=== PATIENT | female | born 2005 | race Caucasian/White ===

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

== ENCOUNTER 2023-02-12 21:34 | Outpatient (CLI) | payer MEDICAID ==
[~2023-02-12] VITALS: Ht 160 cm; Wt 61.4 kg
[2023-02-12 21:58] VITALS: BP 98/65
[2023-02-12 22:13] LABS: CLARITY,URINE CLOUDY; COLOR,URINE YELLOW; GLUCOSE, URINE (UA) TRACE (NEGATIVE); KETONES,URINE NEGATIVE (NEGATIVE); NITRITE,URINE NEGATIVE (NEGATIVE); PROTEIN,URINE 2+ (NEGATIVE)
[2023-02-12 22:14] LABS: BACTERIA,URINE LARGE /HPF; BILIRUBIN,URINE 1+ (NEGATIVE); LEUKOCYTE ESTERASE ,URINE 3+ (NEGATIVE); RBC,URINE 0-2 /HPF; SQUAMOUS EPITHELIAL CELL,UR >50 /HPF; WBC,URINE 25-50 /HPF
--- NOTE | 2023-02-13 07:55 | Physician Query-Final Dx ---
CAIO02/13/23 0755: Clinic Account Progress/Dx Physician Query: Please give diagnosis Please include # weeks gestation Date of Service Feb 12, 2023 at 21:34 ADOLFO BUCHANAN MD 02/13/23 0846: Clinic Account Progress/Dx DIAGNOSIS: Diagnosis Cramping in third trimester Cervix closed 36 weeks gestation ,MayFeb 13, 2023 07:55 ADOLFO BUCAHNAN MD Feb 13, 2023 08:46
== END 2023-02-12 23:15 | disposition home or self-care (01) ==
LOC: LDRP 21:34 → WSo 21:34
PROVIDERS: ATTEND Family Medicine
DX: O62.9 Abnormality of forces of labor, unspecified (principal); Z3A.36 36 weeks gestation of pregnancy
CPT/HCPCS: 81000; 87088; G0463; 87077; 99213

== ENCOUNTER 2023-02-23 08:21 | Inpatient (IN) | payer MEDICAID ==
[~2023-02-23] VITALS: Ht 160 cm; Wt 60.2 kg
[2023-02-23] VITALS (41 sets, daily range): BP systolic 94–139; BP diastolic 52–87
[2023-02-23] MEDS ORDERED: D5 LR 1,000 ML IV SOLN 1,000 ML IV SCH (09:45)
[2023-02-23] MEDS ORDERED: LACTATED RINGERS 1,000 ML 500 ML IV PRN (09:45)
[2023-02-23] MEDS ORDERED: LIDOCAINE 2% w/EPI 1:200,000 20 ML VIAL INJ PRN (09:45)
[2023-02-23] MEDS ORDERED: MINERAL OIL 30 ML UDC TOP PRN (09:45)
[2023-02-23 10:02] LABS: BILIRUBIN,URINE NEGATIVE (NEGATIVE); CLARITY,URINE CLEAR; COLOR,URINE YELLOW; GLUCOSE, URINE (UA) NEGATIVE (NEGATIVE); KETONES,URINE NEGATIVE (NEGATIVE); LEUKOCYTE ESTERASE ,URINE TRACE (NEGATIVE); NITRITE,URINE NEGATIVE (NEGATIVE); PH,URINE 7.5 (5-9); PROTEIN,URINE NEGATIVE (NEGATIVE)
[2023-02-23 10:03] LABS: BACTERIA,URINE TRACE /HPF; WBC,URINE 0-2 /HPF
[2023-02-23 10:24] LABS: BASOPHILS # (AUTO) 0.1 10^3/uL (0.0-0.1); BASOPHILS % (AUTO) 0 % (0-10); EOSINOPHILS # (AUTO) 0.3 10^3/uL (0.0-0.3); EOSINOPHILS % (AUTO) 2 % (0-10); HEMATOCRIT 34 % (35-52); HEMOGLOBIN 10.5 g/dL (11.5-16.0); LYMPHOCYTES # (AUTO) 2.1 10^3/uL (1.0-4.0); LYMPHOCYTES % (AUTO) 16 % (12-44); MEAN CORPUSCULAR HEMOGLOBIN 24 pg (25-34); MEAN CORPUSCULAR HGB CONC 31 g/dL (32-36); MEAN CORPUSCULAR VOLUME 76 fL (80-99); MEAN PLATELET VOLUME 11.9 fL (9.0-12.2); MONOCYTES # (AUTO) 1.6 10^3/uL (0.0-1.0); MONOCYTES % (AUTO) 12 % (0-12); NEUTROPHILS # (AUTO) 9.3 10^3/uL (1.8-7.8); NEUTROPHILS % (AUTO) 69 % (42-75); PLATELET COUNT 259 10^3/uL (130-400); WHITE BLOOD COUNT 13.5 10^3/uL (4.3-11.0)
--- NOTE | 2023-02-23 10:27 | History & Physical-OB ---
LUIS ANTONIO CAMARILLO MD,RESIDENT 02/23/23 1027: OB - Chief Complaint & HPI Date/Time Date of Admission: Date of Admission: Feb 23, 2023 at 09:31 Time Seen by a Provider: 10:00 Chief Complaint/History OB-Reason for Admission/Chief: Rupture of Membranes Hx : 2 Hx Para: 1 Expected Date of Delivery: Mar 12, 2023 Gestational Age in Weeks: 37 Gestational Age in Days: 4 Other Patient is a 17-year-old at 37 and 4. She reports rupture of membranes around 9:30 AM this morning with clear fluid. She denies feeling any contractions or vaginal bleeding and feels baby move. She denies any chest pain shortness of breath, nausea, or vomiting. She denies any complications with her previous for this current one. She delivered her daughter roughly 15 months ago. Allergies and Home Medications Allergies Coded Allergies: No Known Drug Allergies (Unverified , 11/11/21) Patient Home Medication List Home Medication List Reviewed: Yes Acetaminophen (Tylenol) 325 Mg Capsule, 325 MG PO PRN, (Reported) Entered as Reported by: YAHIR MERRITT on 11/11/211946 Last Action: Last Taken Edited Docusate Sodium (Docusate Sodium) 100 Mg Capsule, 100 MG PO BID Prescribed by: MARYAM NEWELL on 02/24/23 102 Ibuprofen (Ibu) 600 Mg Tablet, 600 MG PO Q6HR Prescribed by: MARYAM NEWELL on 02/24/23 1026 Vit/Iron Fumarate/FA ( Vitamins Tablet) 28 Mg Iron-800 Mcg Tablet, 1 EACH PO DAILY, (Reported) Entered as Reported by: YAHIR MERRITT on 11/11/211945 Last Action: Last Taken Edited OB - History Hx of Present Care: Yes Obstetrical History Hx : 2 Hx Para: 1 Hx Total # of Abortions (Spona: 0 Patient Past Medical History Denies Social History/Family History Alcohol Use: Denies Use Recreational Drug Use: No 2nd Hand Smoke Exposure: No Immunizations Influenza Vaccine Up-to-Date: No; Not Current First/Initial COVID19 Vaccine: N/A Tetanus Booster (TDap): Less than 5yrs OB - Admission Exam Physical Exam Vitals: Vital Signs 02/23/23 09:15 Temp 36.8 Pulse 101 Resp 20 B/P (MAP) 102/55 Pulse Ox 97 O2 Delivery Room Air Heart: Rhythm Normal Lungs: Clear Abdomen: Gravid Extremities: Normal Cervical Dilatation: 3cm Effacement: 75% Station: -3 Membranes: Ruptured Amniotic Fluid: Clear Heart Rate: 130's Accelerations: Accelerations Present Decelerations: No Decelerations Short Term Variability: Present Cooking Teacher Variability: Average (6-25) Contractions on Admission: >10 Minutes Apart Intensity: Mild Labs Laboratory Tests Test 02/23/23 09:20 Range/Units Urine Color YELLOW Urine Clarity CLEAR Urine pH 7.5 5-9 Urine Specific [place] 1.015 L 1.016-1.022 Urine Protein NEGATIVE NEGATIVE Urine Glucose (UA) NEGATIVE NEGATIVE Urine Ketones NEGATIVE NEGATIVE Urine Nitrite NEGATIVE NEGATIVE Urine Bilirubin NEGATIVE NEGATIVE Urine Urobilinogen 0.2 < = 1.0 MG/DL Urine Leukocyte Esterase TRACE H NEGATIVE Urine RBC (Auto) NEGATIVE NEGATIVE Urine RBC NONE /HPF Urine WBC 0-2 /HPF Urine Squamous Epithelial Cells 10-25 H /HPF Urine Crystals NONE /LPF Urine Bacteria TRACE /HPF Urine Casts NONE /LPF Urine Mucus NEGATIVE /LPF Urine Culture Indicated CULTURE PENDING OB - Assessment/Plan/Diagnosis Assessment Assessment: rupture of membranes Admission Dx PROM Admission Status: Inpatient Order (span 2 midnights) Reason for Inpatient Admission: PROM Plan Plan: Expectant Management Induction Method: per Pitocin Protocol Problems: (1) PROM (premature rupture of membranes) Assessment & Plan: Plan for spontaneous vaginal delivery Labor augmentation with Pitocin Plan for epidural when Pt ready GBS NEG (2) 37 4/7 MARYAM NEWELL MD 02/26/23 1618: Allergies and Home Medications Allergies Coded Allergies: No Known Drug Allergies (Unverified , 11/11/21) Patient Home Medication List Acetaminophen (Tylenol) 325 Mg Capsule, 325 MG PO PRN, (Reported) Entered as Reported by: YAHIR MERRITT on 11/11/211946 Last Action: Last Taken Edited Docusate Sodium (Docusate Sodium) 100 Mg Capsule, 100 MG PO BID Prescribed by: MARYAM NEWELL on 02/24/23 1026 Ibuprofen (Ibu) 600 Mg Tablet, 600 MG PO Q6HR Prescribed by: MARYAM NEWELL on 02/24/23 1026 Vit/Iron Fumarate/FA ( Vitamins Tablet) 28 Mg Iron-800 Mcg Tablet, 1 EACH PO DAILY, (Reported) Entered as Reported by: YAHIR MERRITT on 11/11/211945 Last Action: Last Taken Edited Supervisory-Addendum Brief Supervisory Addendum I personally performed the hilliard portions of the visit, discussed case with resident and concur with resident documentation of history, physical exam, assessment and treatment plan unless otherwise noted. LUIS ANTONIO CAMARILLO MD,RESIDENT Feb 23, 2023 10:27 MARYAM NEWELL MD Feb 26, 2023 16:18
[2023-02-23] MEDS ORDERED: OXYTOCIN DRIP PRE-MIX 500 ML IV SCH ×2 (10:30→16:30)
[2023-02-23] MEDS ORDERED: fentaNYL 2 mcg/ml BUPIVA 0.125 100 ML ONE (11:49)
[2023-02-23] MEDS ORDERED: BUPIVACAINE 0.25% 10 ML VIAL ONE (11:53)
[2023-02-23] MEDS ORDERED: fentaNYL INJECTION 100 MCG/2 ML VIAL ONE (11:53)
[2023-02-23] MEDS ORDERED: ONDANSETRON INJECTION 4 MG/2 ML (SDV) IV PRN (12:30)
[2023-02-23] MEDS ORDERED: fentaNYL 2 mcg/ml BUPIVA 0.125 100 ML EPI SCH (12:30)
[2023-02-23] MEDS ORDERED: diphenhydrAMINE INJ 50 MG/ML VIAL IV PRN (12:30)
[2023-02-23] MEDS ORDERED: CATHETER FLUSH 10 ML SYR IV PRN (12:30)
[2023-02-23] MEDS ORDERED: LACTATED RINGERS 1,000 ML 1,000 ML IV ONE (12:30)
[2023-02-23] MEDS ORDERED: NALOXONE 0.4 MG/ML 1 ML VIAL IV PRN (12:30)
[2023-02-23] MEDS ORDERED: CATHETER FLUSH 10 ML SYR IV SCH ×2 (14:00→22:00)
[2023-02-23] MEDS ORDERED: Tetanus/Diphtheria/Pertussis (Acell) ADULT Vaccine 0.5 ML IM ONE (16:30)
[2023-02-23] MEDS ORDERED: MEASLES, MUMPS, RUBELLA VACCINE (MMR) SQ ONE (16:30)
[2023-02-23] MEDS ORDERED: BENZOCAINE/MENTHOL (DERMOPLAST) 56 ML CAN TP PRN (16:30)
--- NOTE | 2023-02-23 16:35 | OB Labor & Delivery Record ---
Vag Delivery Note Vag Delivery Note Date of Delivery: 02/23/23 Preoperative Diagnosis: Latanya Mederos is a 17 /Para 2 / 1,Gestational Age (wks)37with 4 days Postoperative Diagnosis: Same Attending Surgeon/Physician: Lata Pardo MD Anesthesia: Epidural Delivery Type: Findings: Viable male infant, apgars 8/9, weight 6#10 Lacerations: second degree perineal laceration Intact placenta with 3 vessel cord. Bandolero cord noted, no body cord or shoulder dystocia Estimated Blood Loss: 100 ml Complications: None Condition: Stable Description of Procedure: The patient is a 17 year old female who presented with spontaneous rupture of membranes. She was admitted and informed consent was obtained. Her labor course was remarkable for augmentation with pitocin, and prolonged bradycardia during a period of rapid cervical change. She progressed to complete dilatation and began to push. She was then set up for delivery. The 's head was delivered atraumatically in the ASHISH position. The shoulders and remainder of the 's body were then delivered without difficulty. Upon delivery, the infant was vigorous and placed on maternal chest and the mouth and nares were bulb suctioned. After a delay cord was doubly clamped and cut and the infant remained on maternal chest. An intact placenta with 3-vessel cord delivered via Narciso and there was found to be minimal bleeding.~ Vigorous fundal massage was performed and the fundus was found to be firm. IV oxytocin was given. Examination of the vagina and perineum revealed a second degree laceration repaired in the usual fashion with 3-0 vicryl rapide suture. Following the repair, sponge, instrument and needle counts were correct. Mom and baby were both in stable condition in the labor suite. Vitals - Labs Vital Signs - I&O Vital Signs Date Time Temp Pulse Resp B/P (MAP) Pulse Ox O2 Delivery O2 Flow Rate FiO2 02/23/23 13:15 36.6 76 18 100/59 (73) 97 Room Air 02/23/23 13:00 66 18 103/61 (75) 97 Room Air 02/23/23 12:55 71 18 99/56 (70) 96 Room Air 02/23/23 12:50 71 18 99/56 (70) 96 Room Air 02/23/23 12:45 71 18 103/61 (75) 97 Room Air 02/23/23 12:40 67 18 102/55 (71) 97 Room Air 02/23/23 12:35 77 18 105/58 (74) 97 Room Air 02/23/23 12:30 79 18 98/54 (69) 97 Room Air 02/23/23 12:25 72 18 109/63 (78) 97 Room Air 02/23/23 12:20 79 18 105/61 (76) 97 Room Air 02/23/23 12:15 73 18 105/57 (73) 97 Room Air 02/23/23 12:10 74 18 118/68 (85) 99 Room Air 02/23/23 12:05 89 18 113/64 (80) 99 Room Air 02/23/23 12:00 93 18 121/71 (88) 99 Room Air 02/23/23 11:45 80 18 101/62 (75) Room Air 02/23/23 11:30 77 18 107/66 (80) Room Air 02/23/23 11:15 72 18 106/61 (76) Room Air 02/23/23 11:00 86 18 102/61 (75) Room Air 02/23/23 10:45 36.9 76 18 97 Room Air 02/23/23 10:45 36.9 76 18 109/66 (80) 97 Room Air 02/23/23 09:15 36.8 101 20 102/55 97 Room Air Labs Laboratory Tests 02/23/23 09:20: Urine Color YELLOW, Urine Clarity CLEAR, Urine pH 7.5, Urine Specific [place] 1.015L, Urine Protein NEGATIVE, Urine Glucose (UA) NEGATIVE, Urine Ketones NEGATIVE, Urine Nitrite NEGATIVE, Urine Bilirubin NEGATIVE, Urine Urobilinogen 0.2, Urine Leukocyte Esterase TRACEH, Urine RBC (Auto) NEGATIVE, Urine RBC NONE, Urine WBC 0-2, Urine Squamous Epithelial Cells 10-25H, Urine Crystals NONE, Urine Bacteria TRACE, Urine Casts NONE, Urine Mucus NEGATIVE, Urine Culture Indicated CULTURE PENDING 02/23/23 10:15: White Blood Count 13.5H, Red Blood Count 4.46, Hemoglobin 10.5L, Hematocrit 34L, Mean Corpuscular Volume 76L, Mean Corpuscular Hemoglobin 24L, Mean Corpuscular Hemoglobin Concent 31L, Red Cell Distribution Width 15.3H, Platelet Count 259, Mean Platelet Volume 11.9, Immature Granulocyte % (Auto) 1, Neutrophils (%) (Auto) 69, Lymphocytes (%) (Auto) 16, Monocytes (%) (Auto) 12, Eosinophils (%) (Auto) 2, Basophils (%) (Auto) 0, Neutrophils # (Auto) 9.3H, Lymphocytes # (Auto) 2.1, Monocytes # (Auto) 1.6H, Eosinophils # (Auto) 0.3, Basophils # (Auto) 0.1, Immature Granulocyte # (Auto) 0.2H, Syphilis Total Antibody Negative LATA PARDO MD Feb 23, 2023 16:35
[2023-02-23] MEDS: WITCH HAZEL(TUCKS) 40 EA JAR TOP PRN (17:46)
[2023-02-23] MEDS: IBUPROFEN 600 MG TABLET PO SCH ×2 (17:46→23:36)
[2023-02-23] MEDS: DOCUSATE SODIUM 100 MG CAPSULE PO SCH (20:36)
[2023-02-24 04:56] VITALS: BP 105/66
[2023-02-24] MEDS: IBUPROFEN 600 MG TABLET PO SCH ×4 (04:57→23:42)
[2023-02-24 05:38] LABS: BASOPHILS # (AUTO) 0.1 10^3/uL (0.0-0.1); BASOPHILS % (AUTO) 0 % (0-10); EOSINOPHILS # (AUTO) 0.3 10^3/uL (0.0-0.3); EOSINOPHILS % (AUTO) 2 % (0-10); HEMATOCRIT 31 % (35-52); HEMOGLOBIN 9.8 g/dL (11.5-16.0); LYMPHOCYTES # (AUTO) 2.2 10^3/uL (1.0-4.0); LYMPHOCYTES % (AUTO) 13 % (12-44); MEAN CORPUSCULAR HEMOGLOBIN 23 pg (25-34); MEAN CORPUSCULAR HGB CONC 31 g/dL (32-36); MEAN CORPUSCULAR VOLUME 74 fL (80-99); MEAN PLATELET VOLUME 11.5 fL (9.0-12.2); MONOCYTES # (AUTO) 1.8 10^3/uL (0.0-1.0); MONOCYTES % (AUTO) 11 % (0-12); NEUTROPHILS # (AUTO) 12.5 10^3/uL (1.8-7.8); NEUTROPHILS % (AUTO) 74 % (42-75); PLATELET COUNT 259 10^3/uL (130-400)
[2023-02-24 06:06] LABS: BAND NEUTROPHILS 2 %; EOSINOPHILS % (MANUAL) 2 %; LYMPHOCYTES % (MANUAL) 13 %; MONOCYTES % (MANUAL) 6 %; NEUTROPHILS % (MANUAL) 74 %
[2023-02-24 06:07] LABS: ANISOCYTOSIS SLIGHT; REACTIVE LYMPHOCYTES 3 %
[2023-02-24 09:15] VITALS: BP 108/63
[2023-02-24] MEDS: PRENATAL VITAMIN TABLET PO SCH (09:20)
[2023-02-24] MEDS: DOCUSATE SODIUM 100 MG CAPSULE PO SCH ×2 (09:20→23:42)
--- NOTE | 2023-02-24 10:25 | Discharge Summary ---
Diagnosis/Chief Complaint Date of Admission Feb 23, 2023 at 09:31 Date of Discharge 02/24/23 Admission Diagnosis Admission Diagnosis Third Trimester 37 week gestation Discharge Diagnosis Discharge Summary-Simple/Stand Procedures Epidural placement Discharge Physical Examination Allergies: Coded Allergies: No Known Drug Allergies (Unverified , 11/11/21) Vitals & I&Os Vital Sign - Last 12Hours Date Time Temp Pulse Resp B/P (MAP) Pulse Ox O2 Delivery O2 Flow Rate FiO2 02/24/23 09:15 36.5 77 18 108/63 (78) 98 Room Air Intake and Output 02/24/23 00:00 Intake Total 3000 ml Balance 3000 ml General Appearance: Alert, Oriented X3, No Acute Distress Respiratory: Clear to Auscultation, Normal Air Movement Cardiovascular: Regular Rate, No Murmurs Abdominal: Normal Bowel Sounds, Soft, No Tenderness, No Masses, Other (fundus firm and below umbilicus) Extremities: No Edema, No Tenderness/Swelling Neuro: Normal Speech Psych/Mental Status: Mental Status NL, Mood NL Hospital Course See final discharge diagnosis. Discussion & Recommendations 17 yo G2 now P2 delivered term male via Discharge Condition at discharge stable Instructions to patient/family Please see electronic discharge instructions given to patient. Discharge Medications Reviewed and agree with Discharge Medication list on patient's Discharge Instruction sheet Copy Copies To 1: ADOLFO BUCHANAN MD, HOLLY R MD Feb 24, 2023 10:25
[2023-02-24] MEDS ORDERED: IBUP-844 PO (10:26)
[2023-02-24] MEDS ORDERED: DOCU100C37 PO (10:26)
--- NOTE | 2023-02-24 10:27 | Discharge Summary ---
Discharge Inst-[facility] Reconcile Patient Problems Problems Reviewed?: Yes Depart Medications New, Converted or Re-Newed RX: Transmitted to Pharmacy New Medications: Docusate Sodium (Docusate Sodium) 100 Mg Capsule 100 MG PO BID, #14 CAP Ibuprofen (Ibu) 600 Mg Tablet 600 MG PO Q6HR, #30 TAB Continued Medications: Acetaminophen (Tylenol) 325 Mg Capsule 325 MG PO PRN, CAP Vit/Iron Fumarate/FA ( Vitamins Tablet) 28 Mg Iron-800 Mcg Tablet 1 EACH PO DAILY, TAB Follow Up/Instructions Goal/Follow Up: 6 weeks with [place] Activity Activity: Activity as Tolerated Driving Instructions: You May Drive NO SMOKING: NO SMOKING Nothing Inside Vagina: No Douching, No [place], No Tampons Diet Discharge Diet: No Restrictions Symptoms to Report to DrDexter: Swelling Increased, Bleeding Excessive, Fever Over 101 Degrees F MARYAM NEWELL MD Feb 24, 2023 10:27
--- NOTE | 2023-02-24 11:10 | Anesthesia-Regional Post-Op ---
Regional Patient Condition Mental Status: Alert, Oriented x3 Circulation: Same as Pre-Op Headache: Absent Sensation: Full Recovery Motor Block: Absent Post Op Complications Complications None Follow Up Care/Instructions Patient Instructions None needed. Anesthesia/Patient Condition Patient is doing well, no complaints, stable vital signs, no apparent adverse anesthesia problems. No complications reported per nursing. KATHI HERNANDEZ CRNA Feb 24, 2023 11:10
[2023-02-24 13:45] VITALS: BP 113/62
[2023-02-24] MEDS ORDERED: DIBUCAINE 1% OINTMENT 28 GM TUBE TOP PRN (14:00)
[2023-02-24 16:30] VITALS: BP 111/57
[2023-02-24 16:53] VITALS: BP 110/62
[2023-02-24] MEDS: WITCH HAZEL(TUCKS) 40 EA JAR TOP PRN (16:54)
[2023-02-24 23:42] VITALS: BP 110/67
[2023-02-25 05:39] VITALS: BP 113/81
[2023-02-25] MEDS: IBUPROFEN 600 MG TABLET PO SCH (05:39)
[2023-02-25 09:00] VITALS: BP 116/72
[2023-02-25] MEDS: PRENATAL VITAMIN TABLET PO SCH (09:06)
[2023-02-25] MEDS: DOCUSATE SODIUM 100 MG CAPSULE PO SCH (09:06)
--- NOTE | 2023-02-25 10:38 | Postpartum Progress Note ---
Note Note Note for 02/24/23 Day # 1 Subjective: Patient is without complaints. Ambulating, voiding. Tolerating a regular diet without nausea or vomiting. Normal lochia. Pain is well controlled with oral pain medications. Bottle feeding. Objective: Physical Exam: General - Alert and oriented, no apparent distress Abdomen - Soft, appropriately tender to palpation, non-distended, fundus firm at umbilicus Extremities - no edema, negative Ryder's bilaterally Assessment: 17 yo G2 now P2 post- day # 1, status post spontaneous vaginal delivery. Recovering well, hemodynamically stable Asymptomatic anemia of acute blood loss Plan: Routine care. Encourage breast feeding. Encourage ambulation. Ferrous sulfate supplementation. Plan for discharge today Vitals - Labs Vital Signs - I&O Vital Signs Date Time Temp Pulse Resp B/P (MAP) Pulse Ox O2 Delivery O2 Flow Rate FiO2 02/25/23 09:00 36.9 69 18 116/72 (87) 98 Room Air 02/25/23 05:39 36.5 78 18 113/81 (92) 99 Room Air 02/24/23 23:42 36.5 73 18 110/67 (81) 98 Room Air 02/24/23 16:53 36.7 75 18 110/62 (78) 98 Room Air 02/24/23 16:30 36.8 02/24/23 13:45 36.7 65 18 113/62 (79) 98 Room Air Labs Microbiology 02/23/23 Urine Culture - Preliminary, Resulted Slight Growth Present MARYAM NEWELL MD Feb 25, 2023 10:38
[2023-02-25 12:15] VITALS: BP 116/72
== END 2023-02-25 12:15 | disposition home or self-care (01) | DRG 806 ==
LOC: LDRP 08:21 → WSo 08:21 → LDRP 09:31
PROVIDERS: ADMIT Family Medicine; ATTEND Family Medicine
PROC: 10E0XZZ Delivery of Products of Conception, External Approach (ICD-10-PCS; principal; 2023-02-23)
PROC: 0KQM0ZZ Repair Perineum Muscle, Open Approach (ICD-10-PCS; 2023-02-23)
DX: O42.02 Full-term premature rupture of membranes, onset of labor within 24 hours of rupture (principal); D62 Acute posthemorrhagic anemia; Z37.0 Single live birth; O70.1 Second degree perineal laceration during delivery; Z3A.37 37 weeks gestation of pregnancy; O69.89X0 Labor and delivery complicated by other cord complications, not applicable or unspecified; O90.81 Anemia of the puerperium
CPT/HCPCS: 36415; 81000; 85007; 85025; 85027; 86780; 86850; 86900; 86901; 87088; 99213